=== PATIENT | female | born 1970 | race Caucasian/White ===

== ENCOUNTER 2017-01-23 09:27 | Emergency (ER) | payer OTHER ==
[2017-01-23] MEDS ORDERED: Sodium Chloride 0.9% 1,000 ML IV STA (10:19)
[2017-01-23 10:30] LABS: BASO % 0.3 % (0.0-2.0); EOS % 0.1 % (0.0-4.0); HEMATOCRIT 35.5 % (34.0-47.0); LYMPH # 1.2 K/uL (1.0-4.3); LYMPH % 9.7 % (20.0-40.0); MEAN CELL VOLUME 69.9 fl (81.0-99.0); MEAN CORPUSCULAR HEMOGLOBIN 21.2 pg (27.0-31.0); MEAN CORPUSCULAR HGB CONC 30.4 g/dL (33.0-37.0); MEAN PLATELET VOLUME 9.6 fl (7.2-11.7); MONO # 0.6 K/uL (0.0-0.8); MONO % 4.7 % (0.0-10.0); NEUT # 10.5 K/uL (1.8-7.0); NEUT % 85.2 % (50.0-75.0); PLATELET COUNT 249 K/uL (130-400); RED CELL DISTRIBUTION WIDTH 18.1 % (11.5-14.5); WHITE BLOOD COUNT 12.3 K/uL (4.8-10.8)
--- NOTE | 2017-01-23 10:44 | ED PDOC ---
Syncope/Near Syncope/Dizziness Time Seen by Provider: 01/23/17 09:44 Chief Complaint (Nursing): Syncope Chief Complaint (Provider): syncope History Per: Family () History/Exam Limitations: no limitations Onset/Duration Of Symptoms: Days (x1) Current Symptoms Are (Timing): Still Present Additional History Per: Patient Additional Complaint(s): Michelle Watkins is a 46 year old female with a past medical history of vertigo, shingles to her right arm, kidney insufficiency, breast fibroids and a past surgical history of a cholecystectomy and appendectomy accompanied by her presenting to the ED for an evaluation status post fall. The patients reports they went out last night to a restaurant where the patient had 3 glasses of red wine reporting feeling tipsy. The couple then went home and went to bed. At 3 AM, the patients states hearing a loud noise and finding his semi-unconscious on the ground. He also reports the patient woke up this morning feeling nauseous and dizzy, with 2 episodes of vomiting this morning. The patient states pain to the back of her head, tailbone, and left side of her neck. She also states not remembering anything last night. PMD: [facility], [place] Past Medical History Reviewed: Historical Data, Nursing Documentation, Vital Signs Vital Signs: Last Vital Signs Temp 98 F 01/23/17 09:39 Pulse 73 01/23/17 09:39 Resp 18 01/23/17 09:39 BP 118/72 01/23/17 09:39 Pulse Ox 100 01/23/17 09:39 - Medical History PMH: Anemia, Chronic Kidney Disease - Family History Family History: States: Unknown Family Hx - Social History Current smoker - smoking cessation education provided: No Ex-Smoker (has not smoked in the last 12 months): No Alcohol: Other Drugs: Denies - Allergies Allergies/Adverse Reactions: Allergies Allergy/AdvReac Type Severity Reaction Status Date / Time No Known Allergies Allergy Verified 01/23/17 09:39 Review of Systems ROS Statement: Except As Marked, All Systems Reviewed And Found Negative Musculoskeletal: Positive for: Neck Pain (left sided ), Back Pain, Other (pain to posterior head ) Physical Exam - Reviewed Nursing Documentation Reviewed: Yes Vital Signs Reviewed: Yes - Physical Exam Appears: Positive for: Non-toxic, No Acute Distress (uncomfortable ) Head Exam: Positive for: ATRAUMATIC, NORMOCEPHALIC (occipital marianela: tenderness and mild swelling ) Skin: Positive for: Pallor Eye Exam: Positive for: Normal appearance, EOMI, PERRL Neck: Positive for: Supple, Trachea Midline Cardiovascular/Chest: Positive for: Regular Rate, Rhythm Respiratory: Positive for: Normal Breath Sounds. Negative for: Respiratory Distress Gastrointestinal/Abdominal: Positive for: Normal Exam, Soft. Negative for: Tenderness Back: Positive for: Other (tenderness to tailbone area ) Extremity: Positive for: Normal ROM Neurologic/Psych: Positive for: Alert, Oriented - Laboratory Results Result Diagrams: 01/23/17 10:27 01/23/17 10:27 - ECG ECG Rhythm: Positive for: Normal QRS, Sinus Rhythm (normal ). Negative for: ST/ T Changes Rate: 79 O2 Sat by Pulse Oximetry: 100 (RA) Pulse Ox Interpretation: Normal Medical Decision Making Medical Decision Making: Time: 09:44 Impression: Possible syncope, head injury with loss of consciousness Plan: * CT head w/o Contrast * ED Ekg * Alcohol Serum * BMP * Drug screen, urine * Troponin I * CBC (with differential) * D Dimer [COAG] * NS 1,000 ml IV 1,000 mls/hr * Zofran 4 mg IV * Reevaluation CT Head FINDINGS: HEMORRHAGE: No intracranial hemorrhage. BRAIN: No mass effect or edema. No atrophy or chronic microvascular ischemic changes. VENTRICLES: Unremarkable. No hydrocephalus. CALVARIUM: Unremarkable. PARANASAL SINUSES: Unremarkable as visualized. No significant inflammatory changes. MASTOID AIR CELLS: Unremarkable as visualized. No inflammatory changes. OTHER FINDINGS: None. IMPRESSION: No acute intracranial abnormalities. No significant findings to account for the clinical presentation. 15:00 Patient signed over to Sonny Sandoval MD pending CT angio chest. Scribe Attestation: Documented by Arely Garduno, acting as a scribe for Andrew Barnhart MD. Provider Scribe Attestation: All medical record entries made by the Scribe were at my direction and personally dictated by me. I have reviewed the chart and agree that the record accurately reflects my personal performance of the history, physical exam, medical decision making, and the department course for this patient. I have also personally directed, reviewed, and agree with the discharge instructions and disposition. Disposition - Clinical Impression Clinical Impression: Syncope and collapse - Patient ED Disposition Is Patient to be Admitted: Transfer of Care - Disposition Referrals: [facility] [Outside] (2 to 3 days) Corky Valdez MD [Staff Provider] - (2 to 3 days) Disposition: Transfer of Care Disposition Time: 15:00 Condition: STABLE Instructions: Syncope (ED)
[2017-01-23 10:54] LABS: ALCOHOL SERUM < 10 mg/dl (0-10); BLOOD UREA NITROGEN 11 mg/dl (7-17); CALCIUM 9.5 mg/dL (8.4-10.2); CARBON DIOXIDE 26 mmol/L (22-30); CHLORIDE 103 mmol/L (98-107); GFR AFRICAN-AMERICAN > 60; GLUCOSE,RANDOM 113 mg/dL (65-105); POTASSIUM 3.9 MMOL/L (3.6-5.0); SODIUM 142 mmol/l (132-148)
[2017-01-23 11:13] LABS: NEUTROPHIL 87 % (42-75); TOTAL CELLS COUNTED 100
[2017-01-23 11:14] LABS: LARGE PLATELETS PRESENT
[2017-01-23] MEDS ORDERED: Iodixanol 320 MG/ML 100 ML BOTTLE IV ONE (11:28)
[2017-01-23] MEDS ORDERED: Sodium Chloride 0.9% 50 ML IV ONE (11:28)
--- NOTE | 2017-01-23 12:50 | CT ---
PROCEDURE: CT HEAD WITHOUT CONTRAST. HISTORY: head injury COMPARISON: None available. TECHNIQUE: Axial computed tomography images were obtained through the head/brain without intravenous contrast. Radiation dose: Total exam DLP = 805.42 mGy-cm. This CT exam was performed using one or more of the following dose reduction techniques: Automated exposure control, adjustment of the mA and/or kV according to patient size, and/or use of iterative reconstruction technique. FINDINGS: HEMORRHAGE: No intracranial hemorrhage. BRAIN: No mass effect or edema. No atrophy or chronic microvascular ischemic changes. VENTRICLES: Unremarkable. No hydrocephalus. CALVARIUM: Unremarkable. PARANASAL SINUSES: Unremarkable as visualized. No significant inflammatory changes. MASTOID AIR CELLS: Unremarkable as visualized. No inflammatory changes. OTHER FINDINGS: None. IMPRESSION: No acute intracranial abnormalities. No significant findings to account for the clinical presentation.
[2017-01-23 15:37] VITALS: RESP 16
--- NOTE | 2017-01-23 17:07 | ED PDOC ---
- Laboratory Results Result Diagrams: 01/23/17 10:27 01/23/17 10:27 - ECG ECG: Positive for: Interpreted By Me ECG Rhythm: Positive for: Normal QRS, Normal ST Segment, Sinus Rhythm. Negative for: ST/T Changes Interpretation Of Abn EKG: rate of 79 O2 Sat by Pulse Oximetry: 99 Pulse Ox Interpretation: Normal - Progress ED Course And Treament: pelvis and sacrum xray 3 views no fx or dislocation no sts, repeat exam by me shows nml neuro exam pt burt po. all of pt's questions were answered and pt agree 's with plan. Re-evaluation Time: 17:05 Condition: Improved Medical Decision Making Medical Decision Making: no prolonged qt on repeat ecg. Disposition Counseled Patient/Family Regarding: Studies Performed, Diagnosis, Need For Followup - Clinical Impression Clinical Impression: Syncope and collapse - POA Present On Arrival: None - Disposition Referrals: [facility] [Outside] (2 to 3 days) Corky Valdez MD [Staff Provider] - (2 to 3 days) Disposition: Routine/Home Disposition Time: 16:00 Condition: STABLE Instructions: Syncope (ED) Forms: [employer] (Japanese)
[2017-01-23 17:50] VITALS: BP 113/71; TEMP 97.9; O2SAT 100
--- NOTE | 2017-01-23 20:01 | CT ---
PROCEDURE: CT Chest with contrast (Pulmonary Angiogram) HISTORY: chest pain COMPARISON: None available. TECHNIQUE: Axial computed tomography images were obtained of the chest in the pulmonary arterial phase of enhancement. Coronal and sagittal reformatted images were created and reviewed. Intravenous contrast dose: 90 cc Visipaque contrast material. Radiation dose:Total exam DLP = 405.45 mGy-cm. This CT exam was performed using one or more of the following dose reduction techniques: Automated exposure control, adjustment of the mA and/or kV according to patient size, and/or use of iterative reconstruction technique. FINDINGS: PULMONARY ARTERIES: Unremarkable. No pulmonary embolism. Mild posterior passive type atelectasis AORTA: No acute findings. No thoracic aortic aneurysm. LUNGS: Unremarkable. No nodule, mass or pulmonary consolidation. Minor linear scarring seen left upper lobe adjacent to a calcified granuloma. Small calcified granuloma seen in the right upper lobe. Findings consistent with prior exposure to granulomatous disease process. PLEURAL SPACES: Unremarkable. No effusion or pneumothorax. HEART: Unremarkable. No cardiomegaly. No significant pericardial effusion. LYMPH NODES: No lymphadenopathy. BONES, CHEST WALL: Unremarkable. No fracture or destructive lesion OTHER FINDINGS: Small hiatal hernia. IMPRESSION: No evidence of acute pulmonary embolus. . Minor scarring changes left upper lobe adjacent to a focal calcified granuloma. Small granuloma right upper lobe. Findings are consistent with prior exposure to granulomatous disease process. Mild the posterior passive type atelectasis
--- NOTE | 2017-01-23 20:02 | RAD ---
PROCEDURE: Radiographs of the pelvis. HISTORY: Trauma. By history, negative test (concurrent with this examination). COMPARISON: None. FINDINGS: BONES: Pelvic Bones: Unremarkable. Hips: Grossly unremarkable. JOINTS: Sacroiliac Joints: Unremarkable. Pubic Symphysis: Unremarkable. OTHER FINDINGS: Contrast in an otherwise unremarkable uterus. IMPRESSION: Unremarkable radiographs of the pelvis.
--- NOTE | 2017-01-23 20:02 | RAD ---
PROCEDURE: Radiographs of the Sacrum and Coccyx HISTORY: trauma COMPARISON: None available. TECHNIQUE: Frontal and lateral views of the sacrum and coccyx FINDINGS: BONES: Sacrum and coccyx unremarkable. No fracture or focal lesion. SACROILIAC JOINTS: Unremarkable. OTHER FINDINGS: None. IMPRESSION: Unremarkable radiographs of the sacrum and coccyx. Concordant results with the preliminary interpretation rendered by the emergency department physician procedure.
--- NOTE | 2017-01-23 22:42 | CARD ---
APPROVED REPORT EKG Measurement Heart [id number] <Conclusion> Normal sinus rhythm Nonspecific T wave abnormality Prolonged QT Abnormal ECG
[2017-01-24 15:10] VITALS: PULSE 79
--- NOTE | 2017-01-24 23:11 | CARD ---
APPROVED REPORT EKG Measurement Heart [id number] <Conclusion> Normal sinus rhythm Nonspecific T wave abnormality Abnormal ECG
== END 2017-01-23 17:49 | disposition home or self-care (01) ==
LOC: H.ER 09:27
DX: R55 Syncope and collapse (principal); W19.XXXA Unspecified fall, initial encounter; Y92.002 Bathroom of unspecified non-institutional (private) residence as the place of occurrence of the external cause; I12.9 Hypertensive chronic kidney disease with stage 1 through stage 4 chronic kidney disease, or unspecified chronic kidney disease; D64.9 Anemia, unspecified
CPT/HCPCS: 70450; 71275; 72170; 72220; 80048; 80320; 80324; 80345; 80346; 80349; 80353; 80358; 80361; 81025; 82948; 83992; 84484; 85025; 85378; 93005; 96361; 96365; 96375; 99285; J1885; J2270; J2405; J2765; J7040; Q9967